=== PATIENT | female | born 1975 | race Caucasian/White ===

== ENCOUNTER 2019-09-22 12:47 | Day surgery (SDC) | payer OTHER ==
[~2019-09-22] VITALS: Ht 162.6 cm; Wt 103.2 kg
[~2019-09-22 12:47] MED LIST: ACEBUTCAFT PO; AMOCLA875; CHOL10002 PO; CIPR250 PO; CITA20 PO; CODBUTACEC PO; ESCI10; ESCI10 PO; ESCI20 PO; ESOM20 PO; ESTR2 PO; Esgic Tablet1 EACH PO; FAMO20 PO; HYDACE5 PO; HYDROCHLOROTHIAZIDE; Hair, Skin & N1 EACH PO; IBUP400 PO; IBUP800 PO; LORA.5 PO; LORA1; LORA1 PO; LORA2 PO; MECL25 PO; MEDR5 PO; PROC10 PO; PROM25 PO; Percocet 5-3251 EACH PO; RXLORA1 PO; TRAZ50 PO; VALS80 PO; VALSARTAN; Zofran Odt4 MG SL; [UNRECOGNIZED DRUG - MIXTURE]; [UNRECOGNIZED DRUG - OTHER]
[2019-09-22] MEDS ORDERED: LISI20 (13:16)
--- NOTE | 2019-09-22 13:19 | NUR ---
09/22/19 1319 ELISHA MAGALLON ONE ATTEMPT IN RH BY LEIGH GORMAN FLINCHED AND MISSED ONE SUCCESSFULL IN RH BY LEIGH GORMAN TOW
--- NOTE | 2019-09-22 15:58 | NUR ---
09/22/19 1558 Clarita Clay UNABLE TO LOCATE VITAL STRIP POST PROCEDURE. VITALS WERE STABLE T.O. PROCEDURE. PT. COUGHING POST PROCEDURE WITH AT TIMES STRIDOR SOUNDING SOUNDS, JAW/CHIN LIFT PERFORMED BUT THEN PT. WOULD MOVE AWAY FROM JAW/CHIN LIFT. SATS WERE ALWAYS GOOD DURING & POST PROCEDURE. PT. WOKE UP C/O HAVING A REALLY SORE THROAT. PT. STATES "THROAT REALLY HURTS." PT. REMINDED THAT SHE MAY HAVE A SORE THROAT FOR A DAY OR SO. IS AWARE. PER DR. RICH, INSTRUCTED PT. TO EAT SOFT FOODS UNTIL HER THROAT FELT BETTER. PT. DESCRIBES HER SORE THROAT FEELING LIKE STREP THROAT.
== END 2019-09-22 15:35 | disposition home or self-care (01) ==
LOC: ORSCSDS 12:47
PROVIDERS: Internal Medicine Gastroenterology
PROC: 0DB58ZX Excision of Esophagus, Via Natural or Artificial Opening Endoscopic, Diagnostic (ICD-10-PCS; principal; 2019-09-22 15:15)
PROC: 0D757ZZ Dilation of Esophagus, Via Natural or Artificial Opening (ICD-10-PCS; principal; 2019-09-22 15:15)
PROC: 0DB78ZX Excision of Stomach, Pylorus, Via Natural or Artificial Opening Endoscopic, Diagnostic (ICD-10-PCS; principal; 2019-09-22 15:15)
DX: R13.10 Dysphagia, unspecified (principal); K21.0 Gastro-esophageal reflux disease with esophagitis; K31.7 Polyp of stomach and duodenum; K29.70 Gastritis, unspecified, without bleeding; R05 Cough; I10 Essential (primary) hypertension; Z87.891 Personal history of nicotine dependence; Z79.899 Other long term (current) drug therapy; E88.81 Metabolic syndrome and other insulin resistance; E66.01 Morbid (severe) obesity due to excess calories; Z68.41 Body mass index [BMI] 40.0-44.9, adult
CPT/HCPCS: 88305; 88312; 88342; J2250; J2704; J7120

== ENCOUNTER → 2022-04-16 | Outpatient (CLI) | payer OTHER ==
[~2022-04-16] MED LIST changes: +LISI20
== END | disposition home or self-care (01) ==
LOC: LAB SHORT 18:20 → LAB 18:20
DX: N39.0 Urinary tract infection, site not specified (principal)
CPT/HCPCS: 87086

== ENCOUNTER → 2023-07-09 | Outpatient (CLI) | payer OTHER ==
[2023-07-09 14:24] LABS: BASOPHILS ABSOLUTE AUTO 0.05 K/mm3 (0.00-0.23); BASOPHILS PERCENT AUTO 1 % (0-2); EOSINOPHILS ABSOLUTE AUTO 0.16 K/mm3 (0.00-0.68); EOSINOPHILS PERCENT AUTO 2 % (0-6); Hemoglobin 15.2 g/dL (11.5-16.0); IMMATURE GRAN ABSOLUTE AUTO 0.02 K/mm3 (0.00-0.10); IMMATURE GRAN PERCENT AUTO 0 % (0-1); LYMPHOCYTES ABSOLUTE AUTO 2.53 K/mm3 (0.84-5.20); LYMPHOCYTES PERCENT AUTO 31 % (21-46); MONOCYTES ABSOLUTE AUTO 0.74 K/mm3 (0.16-1.47); MONOCYTES PERCENT AUTO 9 % (4-13); Mean Corpuscular HGB 31.2 pg (26.0-34.0); Mean Corpuscular HGB Conc 35.3 g/dL (31.5-36.5); Mean Corpuscular Volume 88 fL (80-100); Mean Platelet Volume 10.4 fL (9.1-12.4); NEUTROPHILS ABSOLUTE AUTO 4.77 K/mm3 (1.96-9.15); NEUTROPHILS PERCENT AUTO 58 % (41-73); Platelet Count 332 K/mm3 (150-400); RDW Coefficient Variation 12.5 % (11.7-14.2); RDW Standard Deviation 39.9 fL (35.1-46.3); Red Blood Cell Count 4.87 M/mm3 (3.80-5.20); White Blood Cell Count 8.27 K/mm3 (4.00-11.30)
[2023-07-09 14:34] LABS: Albumin, Blood 3.9 g/dL (3.4-5.0); Bilirubin, Total 0.4 mg/dL (0.1-1.0); Bun/Creatinine Ratio 28.6 (12.0-20.0); Calcium, Blood 9.2 mg/dL (8.5-10.1); Creatinine, Blood 0.63 mg/dL (0.40-1.00); Globulin, Blood 4.1 g/dL (2.2-4.0); Potassium, Blood 3.9 mmol/L (3.5-5.5)
== END | disposition home or self-care (01) ==
LOC: LAB SHORT 14:18
PROVIDERS: Physician Assistant
DX: R07.89 Other chest pain (principal)
CPT/HCPCS: 80053; 84484; 85025; 85379

== ENCOUNTER → 2024-01-05 | Outpatient (CLI) | payer SELFPAY | LOC: LAB SHORT 17:57 → LAB 17:57 | DX: R39.89 Other symptoms and signs involving the genitourinary system (principal); R53.81 Other malaise; R10.2 Pelvic and perineal pain | CPT/HCPCS: 87086 ==